=== PATIENT | male | born 1990 | race Caucasian/White ===

== ENCOUNTER 2021-01-22 00:07 | Inpatient (IN) | payer SELFPAY ==
[~2021-01-22] VITALS: Ht 172.7 cm; Wt 69.9 kg
[2021-01-22] MEDS ORDERED: ONDANSETRON HCL 4MG/2ML INJ IV STA (00:13)
[2021-01-22] MEDS ORDERED: SODIUM CHLORIDE 0.9% 1,000 ML IV ONE ×2 (00:15→02:30)
[2021-01-22 00:29] LABS: BG BASE EXCESS -0.9 mmol/L (-2.0-2.0); BG CARBOXYHEMOGLOBIN 0.4 % (0.5-1.5); BG DEOXYHEMOGLOBIN 1.3 % (0.0-5.0); BG FRACTION INSPIRED OXYGEN 28; BG METHEMOGLOBIN 0.5 % (0.0-1.5); BG OXYGEN SATURATION 98.7 % (92.0-98.5); BG OXYHEMOGLOBIN 97.8 % (94.0-97.0); BG PCO2 40.7 mmHg (35.0-45.0); BG PH 7.388 (7.350-7.450); BG PO2 149.6 mmHg (75.0-100.0); BG TOTAL HEMOGLOBIN 16.3 g/dL (12.0-18.0); BG VENT MODE NASAL CANNULA
[2021-01-22 00:31] LABS: BASOPHILS % 0.6 % (0.0-2.0); HEMATOCRIT. 44.9 % (42.0-52.0); HEMOGLOBIN. 15.6 g/dL (14.0-18.0); LYMPHOCYTES % 39.3 % (20.0-50.0); MEAN CORPUSCULAR HEMOGLOBIN 36.1 pg (28.0-32.0); MEAN PLATELET VOLUME 7.3 fl (7.4-10.4); MONOCYTES % 13.7 % (2.0-8.0); NEUTROPHILS % 41.4 % (40.0-76.0); PLATELET 524 x1000/uL (130-400); RED BLOOD CELL COUNT 4.31 mill/uL (4.7-6.1); RED CELL DISTRIBUTION WIDTH 13.4 % (11.6-14.6)
[2021-01-22 00:48] LABS: CHLORIDE 104 mEq/L (98-107)
[2021-01-22 01:38] LABS: CLARITY URINE CLEAR (CLEAR); COLOR URINE YELLOW (YELLOW); KETONES URINE NEGATIVE (NEGATIVE); LEUKOCYTE ESTERASE URINE NEGATIVE (NEGATIVE); NITRITE URINE NEGATIVE (NEGATIVE); OCCULT BLOOD URINE NEGATIVE (NEGATIVE); PROTEIN URINE NEGATIVE (NEGATIVE); SPECIFIC GRAVITY URINE 1.007 (1.005-1.030); UROBILINOGEN URINE 0.2 E.U./dL (0.2-1.0)
[2021-01-22 01:48] LABS: *AMPHETAMINES SCREEN URINE NEGATIVE (NEGATIVE); *BARBITURATES SCREEN URINE NEGATIVE (NEGATIVE); *BENZODIAZEPINES SCREEN URINE NEGATIVE (NEGATIVE); *COCAINE SCREEN URINE NEGATIVE (NEGATIVE); CANNABINOID URINE SCREEN PRESUMTIVE POSITIVE (NEGATIVE); METHADONE URINE SCREEN NEGATIVE (NEGATIVE)
[2021-01-22 01:49] LABS: OPIATES URINE SCREEN NEGATIVE (NEGATIVE)
[2021-01-22 01:51] LABS: ETHANOL BLOOD 499 mg/dL
[2021-01-22 01:51] LABS: PHENCYCLIDINE URINE SCREEN NEGATIVE (NEGATIVE)
[2021-01-22 05:44] VITALS: BP 133/92
[2021-01-22] MEDS ORDERED: ACETAMINOPHEN 325MG TABLET PO PRN (07:15)
[2021-01-22] MEDS ORDERED: DEXT 5%/0.45% NACL 1000ML 1,000 ML IV SCH (07:15)
[2021-01-22] MEDS ORDERED: DIPHENHYDRAMINE 50MG/ML VIAL IV PRN (07:15)
[2021-01-22] MEDS ORDERED: ONDANSETRON HCL 4MG/2ML INJ IV PRN (07:15)
[2021-01-22] MEDS ORDERED: MAGNESIUM/ALUMINUM HYDROXIDE/SIMETHICONE 30ML UDC PO PRN (07:15)
[2021-01-22] MEDS ORDERED: LORAZEPAM 2MG/ML CPJ IV PRN (07:15)
[2021-01-22] MEDS ORDERED: GUAIFENESIN 200MG/10ML SUGAR FREE UDC PO PRN (07:15)
[2021-01-22] MEDS ORDERED: DOCUSATE SODIUM 100MG CAPSULE PO PRN (07:15)
[2021-01-22] MEDS ORDERED: IPRATROPIUM/ALBUTEROL 0.5-3(2.5)MG/3ML NEB HHN PRN (07:15)
[2021-01-22] MEDS ORDERED: CLONIDINE 0.1MG TABLET PO PRN (07:15)
[2021-01-22] MEDS ORDERED: HYDRALAZINE 20MG/ML VIAL IV PRN (07:15)
[2021-01-22] MEDS ORDERED: HYDROCODONE/ACETAMINOPHEN 5/325MG TABLET PO PRN (07:15)
[2021-01-22] MEDS ORDERED: NALOXONE HCL 0.4MG/ML VIAL IV PRN (07:30)
[2021-01-22] MEDS ORDERED: CHLORDIAZEPOXIDE 25MG CAPSULE PO SCH (07:30)
[2021-01-22 08:00] VITALS: BP 134/84
[2021-01-22] MEDS ORDERED: ENOXAPARIN 40MG/0.4ML SYR SUBCUT SCH (08:00)
[2021-01-22] MEDS ORDERED: FOLIC ACID 1MG TABLET PO SCH (09:00)
[2021-01-22] MEDS ORDERED: KCL 20MEQ/100ML PREMIX 100 ML IV NR (09:00)
[2021-01-22] MEDS ORDERED: THIAMINE HCL 100MG TABLET PO SCH (09:00)
[2021-01-22] MEDS ORDERED: MULTIVITAMINS,THER W-MINERALS TABLET PO SCH (09:00)
[2021-01-22] MEDS ORDERED: MVI, ADULT NO.1 10 ML, FOLIC ACID 1 MG, THIAMINE HCL 100 MG in SODIUM CHLORIDE 0.9% 1,0... IV NR (09:00)
[2021-01-22] MEDS ORDERED: SODIUM CHLORIDE 0.9% INJ 3ML FLUSH IVF SCH (14:00)
== END 2021-01-22 11:10 | disposition left against medical advice (07) | DRG 279 ==
LOC: ER 00:07 → 7EST 02:48 → ENRESERV 03:47
PROVIDERS: ADMIT Internal Medicine; ATTEND Internal Medicine
DX: K72.90 Hepatic failure, unspecified without coma (principal); E72.20 Disorder of urea cycle metabolism, unspecified; E86.0 Dehydration; E87.6 Hypokalemia; F10.129 Alcohol abuse with intoxication, unspecified; Y90.8 Blood alcohol level of 240 mg/100 ml or more; Z53.29 Procedure and treatment not carried out because of patient's decision for other reasons
CPT/HCPCS: 36415; 36600; 71045; 80053; 80305; 80307; 80320; 80329; 81003; 82140; 82375; 82805; 83605; 85025; 93005; 99291; J1650; J2405; J3411; J3480; J3490; J7030; G0480